=== PATIENT | female | born 1950 | race Caucasian/White ===

== ENCOUNTER → 2017-03-08 | Outpatient (CLI) | payer OTHER ==
--- NOTE | 2017-03-14 14:46 | WOMENS IMAGING REPORT ---
EXAM DESCRIPTION: BILAT SCREENING MAMMO W/CAD COMPLETED DATE/TIME: 03/08/2017 1:01 pm REASON FOR STUDY: SCREENING MAMMO Z12.31 Z12.31 ENCNTR SCREEN MAMMOGRAM FOR MALIGNANT NEOPLASM OF B RE COMPARISON: November 2013 outside facility. TECHNIQUE: Standard craniocaudal and mediolateral oblique views of each breast recorded using Casentrica l acquisition. LIMITATIONS: None. FINDINGS: No masses, calcifications or architectural distortion. No areas of suspicion. Read with the assistance of CAD. .[facility] - R2 Cenova Version 1.3 .[facility] Imaging - R2 Cenova Version 1.3 .[facility] - R2 Cenova Version 2.4 .[facility] - R2 Cenova Version 2.4 .COUNTS INCLUDE 234 BEDS AT THE [facility] - R2 Mechanical Test Technician Version 9.2 IMPRESSION: NORMAL MAMMOGRAM. BIRADS 1. BREAST DENSITY: b. There are scattered areas of fibroglandular density. BIRAD: 1 NEGATIVE RECOMMENDATION: ROUTINE SCREENING COMMENT: The patient has been notified of the results by letter per SA requirements. Additional no tification policies are in place for contacting patient with suspicious or incomplete findings. Quality ID #[id number]: The [employer] recommends an annual screening mammogram for women aged 40 years or over. This facility utilizes a reminder system to ensure that all patients receive reminder letters, and/or direct phone calls for appointments. This includes reminders for routine scr eening mammograms, diagnostic mammograms, or other Breast Imaging Interventions when appropriate. Th is patient will be placed in the appropriate reminder system. The [employer] (ACR) has developed recommendations for screening MRI of the breast s in certain patient populations, to be used in conjunction with mammography. Breast MRI surveillanc e may be appropriate for women with more than 20% lifetime risk of developing breast cancer as deter mined by genetic testing, significant family history of the disease, or history of mantle radiation f or Hodgkins Disease. ACR Practice Guidelines 2008. TECHNICAL DOCUMENTATION: FINDING NUMBER: (1) ASSESSMENT: (1) JOB ID: [id number] [employer]- All Rights Reserved
== END ==
LOC: WI 12:26
PROVIDERS: ATTEND Nurse Practitioner Adult Health
DX: Z12.31 Encounter for screening mammogram for malignant neoplasm of breast (principal)
CPT/HCPCS: 77067; G0202

== ENCOUNTER 2017-06-21 01:46 | Inpatient (IN) | payer MEDICARE, OTHER ==
[2017-06-21] MEDS ORDERED: ALBUTEROL SULFATE 0.083% NEB 2.5 MG/3 ML AMPUL NEB ONE ×2 (01:58→02:47)
[2017-06-21] MEDS ORDERED: IPRATROPIUM/ALBUTEROL 0.5-2.5 MG/3 ML AMPUL NEB ONE (01:58)
[2017-06-21] MEDS ORDERED: NORMAL SALINE 1000 ML 1,000 ML IV ONE (01:59)
[2017-06-21] MEDS ORDERED: METHYLPREDNISOLONE INJ 125 MG/2 ML SDV IV ONE (01:59)
--- NOTE | 2017-06-21 02:07 | ER Document Report ---
ED General - General Chief Complaint: Respiratory Distress Stated Complaint: BREATHING DIFFICULTY Time Seen by Provider: 06/21/17 01:58 Notes: Patient is a 67-year-old female with past medical history of hypertension chronic anxiety, current every day tobacco smoker who presents with 3 days of progressively worsening shortness of breath that became much worse this evening. Patient describes having persistent cough without production of sputum for the past 3 days and increasing wheezing and tightness of air movement. She noticed any form of exertion worsens her symptoms. She does not have anything to treat her symptoms at home as she states she has never been diagnosed formally with COPD. Her has been ill with similar symptoms. She has not seen her primary care doctor regarding today's concerns. She denies any history of similar symptoms in the past. She has never required intubation or hospitalization for respiratory condition in the past. TRAVEL OUTSIDE OF THE [place] IN LAST 30 DAYS: No Past Medical History - General Information source: Patient - Social History Smoking Status: Current Every Day Smoker Frequency of alcohol use: None Drug Abuse: None Lives with: Spouse/Significant other Family History: Reviewed & Not Pertinent Review of Systems - Review of Systems Notes: Constitutional: Positive for fever. HENT: Negative for sore throat. Eyes: Negative for visual changes. Cardiovascular: Negative for chest pain. Respiratory: Positive for shortness of breath. Gastrointestinal: Negative for abdominal pain, vomiting or diarrhea. Genitourinary: Negative for dysuria. Musculoskeletal: Negative for back pain. Skin: Negative for rash. Neurological: Negative for headaches, weakness or numbness. 10 point ROS negative except as marked above and in HPI. Physical Exam - Vital signs Vitals: Temp Pulse Resp BP Pulse Ox 98.2 F 90 30 H 153/54 H 79 L 06/21/17 01:52 06/21/17 01:52 06/21/17 01:52 06/21/17 01:52 06/21/17 01:52 Interpretation: Tachycardic, Hypoxic, Tachypneic Notes: PHYSICAL EXAMINATION: GENERAL: Severely ill in appearance, in respiratory distress, unable to speak in complete sentences HEAD: Atraumatic, normocephalic. EYES: Pupils equal round and reactive to light, extraocular movements intact, sclera anicteric, conjunctiva are normal. ENT: nares patent, oropharynx clear without exudates. Dry mucous membranes. NECK: Normal range of motion, supple without lymphadenopathy LUNGS: Absent breath sounds at the bases bilaterally. Extremely tight air movement at the lung apices bilaterally with prolonged expiratory wheezing HEART: Regular tachycardia without murmurs ABDOMEN: Soft, nontender, normoactive bowel sounds. No guarding, no rebound. No masses appreciated. EXTREMITIES: Normal range of motion, no pitting or edema. No cyanosis. NEUROLOGICAL: No focal neurological deficits. Moves all extremities spontaneously and on command. PSYCH: Normal mood, normal affect. SKIN: Warm, Dry, normal turgor, no rashes or lesions noted. Course - Re-evaluation Re-evalutation: 06/21/17 02:06 Patient presents in severe respiratory distress initially saturating 79% on room air at time of presentation, tachypneic, and obvious distress. She was immediately brought back to room. Patient has extremely tight air movement in all lung galeano, almost no breath sounds at the bases bilaterally. She is unable to speak more than 3 words in a sentence despite being on nasal cannula oxygen and a continuous nebulizer. An IV was established. 125 mg of Solu- Medrol, 2 g of magnesium, 1 L of IV fluids all have been initiated. Patient will also be started on ceftriaxone. A chest x-ray will be obtained. Continuous cardiac monitoring has been initiated. Patient will also be placed on BiPAP given her ongoing work of breathing. She is critically ill and require ongoing frequent assessments. 06/21/17 02:20 Patient is clinically improved on BiPAP, continuous in-line nebs are ongoing. She is pulling appropriate tidal volumes. I cannot appreciate air movement at the bases bilaterally. Will continue to monitor closely. 0250-patient continues to have significant improvement in her overall clinical picture. Chest x-ray shows findings consistent with COPD but I do not see an obvious pneumonia. Labs were unremarkable. Patient states she feels markedly improved relative to her time of presentation. I discussed this case with Dr. Griffin who has agreed to admit the patient. - Vital Signs Vital signs: Temp Pulse Resp BP Pulse Ox 98.2 F 90 23 H 106/52 L 99 06/21/17 01:52 06/21/17 01:52 06/21/17 03:30 06/21/17 03:29 06/21/17 03:30 - Laboratory Result Diagrams: 06/21/17 02:10 06/21/17 02:10 Laboratory results interpreted by me: 06/21/17 06/21/17 02:10 02:10 WBC 10.7 H RDW 14.2 H Chloride 96 L Glucose 128 H - Diagnostic Test Radiology reviewed: Image reviewed, Reports reviewed Radiology results interpreted by me: 06/21/17 02:48 Chest x-ray: Hyperexpanded lungs, no obvious infiltrate - EKG Interpretation by Me Additional EKG results interpreted by me: 06/21/17 02:49 Sinus rhythm. Rate 66. No ST elevations or depressions. QTC is 439. Critical Care Note - Critical Care Note Total time excluding time spent on procedures (mins): 38 Comments: Critical care time spent obtaining history from patient or surrogate, discussions with consultants, development of treatment plan with patient or surrogate, evaluation of patient's response to treatment, examination of patient , ordering and performing treatments and interventions, ordering and review of laboratory studies, re-evaluation of patient's condition, ordering and review of radiographic studies and review of old charts Discharge - Discharge Clinical Impression: Respiratory distress, COPD exacerbation Condition: Fair Disposition: ADMITTED INPATIENT Admitting Provider: Johnna [facility] Admitted: Telemetry
[2017-06-21 02:27] LABS: ABSOLUTE BASOPHILS # (AUTO) 0.1 10^3/uL (0.0-0.2); ABSOLUTE EOSINOPHILS # (AUTO) 0.5 10^3/uL (0.0-0.6); ABSOLUTE LYMPHOCYTES (AUTO) 1.5 10^3/uL (0.5-4.7); ABSOLUTE MONOCYTES (AUTO) 1.1 10^3/uL (0.1-1.4); ABSOLUTE NEUT (AUTO) 7.5 10^3/uL (1.7-8.2); BASOPHILS % (AUTO) 1.1 % (0-2); EOSINOPHILS % (AUTO) 4.3 % (0-6); HEMATOCRIT 41.9 % (36.0-47.0); HEMOGLOBIN 14.6 g/dL (12.0-15.5); HGB HCT DIFFERENCE 1.9; LYMPHOCYTES % (AUTO) 13.9 % (13-45); MEAN CORPUSCULAR HEMOGLOBIN 30.8 pg (27.0-33.4); MEAN CORPUSCULAR HGB CONC 34.9 g/dL (32.0-36.0); MEAN CORPUSCULAR VOLUME 88 fl (80-97); MONOCYTES % (AUTO) 10.5 % (3-13); RED BLOOD COUNT 4.76 10^6/uL (3.72-5.28); RED CELL DISTRIBUTION WIDTH 14.2 % (11.5-14.0); SEGMENTED NEUTROPHILS % (AUTO) 70.2 % (42-78); WHITE BLOOD COUNT 10.7 10^3/uL (4.0-10.5)
[2017-06-21] MEDS: MAGNESIUM SULFATE/D5W 1 GM/100 ML RTUPB IV SCH ×2 (02:28→03:09)
[2017-06-21 02:31] LABS: VENOUS BLOOD BASE EXCESS 4.4 mmol/L; VENOUS BLOOD HCO3 31.8 mmol/L (20-32); VENOUS BLOOD PCO2 58.6 mmHg (35-63); VENOUS BLOOD PH 7.35 (7.30-7.42)
[2017-06-21 02:41] LABS: ANION GAP 14 (5-19); BLOOD UREA NITROGEN 14 mg/dL (7-20); CALCIUM 9.7 mg/dL (8.4-10.2); CARBON DIOXIDE 30 mmol/L (22-30); CHLORIDE 96 mmol/L (98-107); CREATININE RESULT 0.71 mg/dL (0.52-1.25); GLUCOSE 128 mg/dL (75-110); POTASSIUM 3.8 mmol/L (3.6-5.0); SODIUM 140.3 mmol/L (137-145)
[2017-06-21] MEDS ORDERED: AZITHROMYCIN 250 MG TABLET PO ONE (02:45)
--- NOTE | 2017-06-21 02:46 | RADIOLOGY REPORT (SQ) ---
EXAM DESCRIPTION: CHEST SINGLE VIEW COMPLETED DATE/TIME: 06/21/2017 2:25 am REASON FOR STUDY: sob COMPARISON: None. EXAM PARAMETERS: NUMBER OF VIEWS: One view. TECHNIQUE: Single frontal radiographic view of the chest acquired. RADIATION DOSE: NA LIMITATIONS: None. FINDINGS: LUNGS AND PLEURA: No opacities, masses or pneumothorax. No pleural effusion. MEDIASTINUM AND HILAR STRUCTURES: No masses. Contour normal. HEART AND VASCULAR STRUCTURES: Heart normal in size. Normal vasculature. BONES: No acute findings. HARDWARE: C7-T1 cervical hardware fusion. OTHER: No other significant finding. IMPRESSION: NO ACUTE RADIOGRAPHIC FINDING IN THE CHEST. TECHNICAL DOCUMENTATION: JOB ID: [id number] [employer]- All Rights Reserved
[2017-06-21] MEDS ORDERED: GUAIFENESIN SYRP 200 MG/10 ML UDC PO PRN (02:48)
[2017-06-21] MEDS ORDERED: IPRATROPIUM/ALBUTEROL 0.5-2.5 MG/3 ML AMPUL NEB PRN ×2 (02:48→12:37)
[2017-06-21] MEDS ORDERED: FLUTICASONE NASAL SPRAY 50 MCG/SPRY 120 SPRAY/16 GM NASL ONE (03:00)
[2017-06-21] MEDS ORDERED: PREDNISONE 20 MG TABLET PO ONE (03:00)
[2017-06-21] MEDS ORDERED: FLUTICASONE NASAL SPRAY 50 MCG/SPRY 120 SPRAY/16 GM ONE (03:45)
[2017-06-21] MEDS ORDERED: CHLORPHENIRAMINE MALEATE 4 MG TABLET ONE (03:45)
--- NOTE | 2017-06-21 05:30 | PDOC H&P ---
History of Present Illness Admission Date/PCP: 06/21/17 02:57 ABEBA LUA NP Patient complains of: Shortness of breath History of Present Illness: LUKE HUBBARD is a 67 year old female with past medical history of hypertension , anxiety, GERD and Tobacco Dependence. Patient presents after 3 days of progressive worsening of shortness of breath associated with rhinorrhea, nonproductive cough and subjective fevers. Her is ill with similar symptoms she denies previous episode she has tried [id number] medications without significant improvement prompting her to seek evaluation after became blue. In the emergency room she is found to be in severe respiratory distress with oxygen saturation of 79% on room air tachypnea and cyanosis. She is placed on BiPAP, continuous albuterol and Atrovent nebulizer, magnesium sulfate IV and referred to the hospitalist for admission. Past Medical History Cardiac Medical History: Reports: Hypertension Pulmonary Medical History: Reports: Bronchitis, Pneumonia Denies: Chronic Obstructive Pulmonary Disease (COPD) Psychiatric Medical History: Reports: Tobacco Dependency Social History Information Source: Patient Lives with: Spouse/Significant other Smoking Status: Current Every Day Smoker Cigarettes Packs Per Day: 0.5 Number of Years Smokin Frequency of Alcohol Use: Social Hx Recreational Drug Use: No Drugs: None - Advance Directive Resuscitation Status: Full Code Family History Family History: Hypertension Parental Family History Reviewed: Yes Children Family History Reviewed: Yes Sibling(s) Family History Reviewed.: Yes Medication/Allergy Allergies/Adverse Reactions: No Known Allergies Allergy (Unverified 06/21/17 04:54) Review of Systems Constitutional: ABSENT: chills, fever(s), headache(s), weight gain, weight loss Eyes: ABSENT: visual disturbances Ears: ABSENT: hearing changes Cardiovascular: ABSENT: chest pain, dyspnea on exertion, edema, orthropnea, palpitations Respiratory: ABSENT: cough, hemoptysis Gastrointestinal: ABSENT: abdominal pain, constipation, diarrhea, hematemesis, hematochezia, nausea, vomiting Genitourinary: ABSENT: dysuria, hematuria Musculoskeletal: ABSENT: joint swelling Integumentary: ABSENT: rash, wounds Neurological: ABSENT: abnormal gait, abnormal speech, confusion, dizziness, focal weakness, syncope Psychiatric: ABSENT: anxiety, depression, homidical ideation, suicidal ideation Endocrine: ABSENT: cold intolerance, heat intolerance, polydipsia, polyuria Hematologic/Lymphatic: ABSENT: easy bleeding, easy bruising Physical Exam Vital Signs: Temp Pulse Resp BP Pulse Ox 97.7 F 83 18 99/32 L 94 06/21/17 04:11 06/21/17 04:11 06/21/17 04:11 06/21/17 04:11 06/21/17 04:11 General appearance: PRESENT: cooperative, mild distress, thin Head exam: PRESENT: atraumatic, normocephalic Eye exam: PRESENT: conjunctiva pink, EOMI, PERRLA. ABSENT: scleral icterus Ear exam: PRESENT: normal external ear exam Mouth exam: PRESENT: moist, tongue midline Neck exam: ABSENT: carotid bruit, JVD, lymphadenopathy, thyromegaly Respiratory exam: PRESENT: accessory muscle use, decreased breath sounds, prolonged expiratory phas, rales, retraction, symmetrical, tachypnea, wheezes Cardiovascular exam: PRESENT: RRR. ABSENT: diastolic murmur, rubs, systolic murmur Pulses: PRESENT: normal dorsalis pedis pul Vascular exam: PRESENT: normal capillary refill GI/Abdominal exam: PRESENT: normal bowel sounds, soft. ABSENT: distended, guarding, mass, organolmegaly, rebound, tenderness Rectal exam: PRESENT: deferred Extremities exam: PRESENT: full ROM. ABSENT: calf tenderness, clubbing, pedal edema Neurological exam: PRESENT: alert, awake, oriented to person, oriented to place , oriented to time, oriented to situation, CN II-XII grossly intact. ABSENT: motor sensory deficit Psychiatric exam: PRESENT: appropriate affect, normal mood. ABSENT: homicidal ideation, suicidal ideation Skin exam: PRESENT: dry, intact, warm. ABSENT: cyanosis, rash Results Impressions: Chest X-Ray 06/21/17 01:58 IMPRESSION: NO ACUTE RADIOGRAPHIC FINDING IN THE CHEST. Assessment & Plan - Diagnosis (1) COPD exacerbation Is this a current diagnosis for this admission?: Yes Plan: Telemetry floor admission, albuterol and Atrovent, flutter valve and education (2) Acute bronchitis Is this a current diagnosis for this admission?: Yes Plan: Empiric antibiotics, prednisone, Flonase, chlorpheniramine, albuterol and Atrovent consider CT given extensive history of tobacco (3) Tobacco dependency Is this a current diagnosis for this admission?: Yes Plan: Tobacco Dependence patient received tobacco cessation counseling and offered nicotine replacement options (4) Respiratory distress Is this a current diagnosis for this admission?: Yes Plan: Secondary to #1 and 2 supportive care and BiPAP. - Time Time Spent: 50 to 70 Minutes - Inpatient Certification Medical Necessity: Need Close Monitoring Due to Risk of Patient Decompensation
[2017-06-21] MEDS: HEPARIN SOD (PORCINE) 5,000 UNIT/ML 1 ML SYRINGE SUBCUT SCH ×3 (05:41→21:37)
[2017-06-21] MEDS: LANSOPRAZOLE 30 MG TAB.RAP.DR PO SCH (05:41)
[2017-06-21] MEDS: FLUTICASONE NASAL SPRAY 50 MCG/SPRY 120 SPRAY/16 GM NASL SCH ×2 (05:50→17:44)
[2017-06-21] MEDS ORDERED: CHLORPHENIRAMINE MALEATE 4 MG TABLET PO ONE (06:00)
[2017-06-21] MEDS ORDERED: PREDNISONE 20 MG TABLET PO SCH (06:00)
[2017-06-21] MEDS ORDERED: CEFTRIAXONE 1 GM/D5W RTU 1 GM/50 ML RTUPB IV ONE (06:00)
[2017-06-21] MEDS: IPRATROPIUM/ALBUTEROL 0.5-2.5 MG/3 ML AMPUL NEB SCH ×3 (07:43→21:39)
[2017-06-21] MEDS: PREDNISONE 20 MG TABLET PO SCH ×2 (10:00→21:37)
[2017-06-21] MEDS: LEVOFLOXACIN 750 MG/D5W RTU 750 MG/150 ML RTUPB IV SCH (10:00)
--- NOTE | 2017-06-21 12:40 | Progress Note ---
Provider Note Provider Note: Ms Flores is a 67-year-old female with a history of COPD who was admitted earlier today with an acute exacerbation. Initially, she required BiPAP. She has been off BiPAP for more than 6 hours. She is on nasal cannula. She is able to speak in complete sentences. On exam, she is still wheezing. She is anxious. She is also being treated for pneumonia with levofloxacin. The plan is to continue IV steroids, duo nebs, and antibiotics. Wean oxygen as tolerated. Home in the next 48-72 hours.
[2017-06-21] MEDS ORDERED: ESCITALOPRAM OXALATE 10 MG TABLET PO ONE (13:30)
[2017-06-21] MEDS ORDERED: METOPROLOL TARTRATE 25 MG TABLET PO ONE (13:30)
[2017-06-21] MEDS: ACETAMINOPHEN 325 MG TABLET PO PRN (15:36)
[2017-06-21] MEDS: LORAZEPAM 1 MG TABLET PO PRN (16:55)
--- NOTE | 2017-06-21 19:42 | EKG REPORT ---
SEVERITY:- NORMAL ECG - SINUS RHYTHM : Confirmed by: Sherri Estrada MD 21-Jun-2017 19:41:52
[2017-06-21] MEDS: ZOLPIDEM TARTRATE 5 MG TABLET PO PRN (21:36)
[2017-06-21] MEDS: METOPROLOL TARTRATE 50 MG TABLET PO SCH (21:37)
[2017-06-22] MEDS: IPRATROPIUM/ALBUTEROL 0.5-2.5 MG/3 ML AMPUL NEB SCH ×4 (03:00→21:27)
[2017-06-22] MEDS: LORAZEPAM 1 MG TABLET PO PRN ×2 (05:18→15:44)
[2017-06-22] MEDS: LANSOPRAZOLE 30 MG TAB.RAP.DR PO SCH (05:19)
[2017-06-22] MEDS: HEPARIN SOD (PORCINE) 5,000 UNIT/ML 1 ML SYRINGE SUBCUT SCH ×3 (05:19→21:24)
[2017-06-22] MEDS: FLUTICASONE NASAL SPRAY 50 MCG/SPRY 120 SPRAY/16 GM NASL SCH ×2 (05:19→18:36)
[2017-06-22 06:34] LABS: ABSOLUTE LYMPHOCYTES (AUTO) 1.2 10^3/uL (0.5-4.7); ABSOLUTE MONOCYTES (AUTO) 0.9 10^3/uL (0.1-1.4); ABSOLUTE NEUT (AUTO) 13.7 10^3/uL (1.7-8.2); BASOPHILS % (AUTO) 0.3 % (0-2); EOSINOPHILS % (AUTO) 0.2 % (0-6); HEMATOCRIT 38.6 % (36.0-47.0); HEMOGLOBIN 13.1 g/dL (12.0-15.5); HGB HCT DIFFERENCE 0.7; LYMPHOCYTES % (AUTO) 7.3 % (13-45); MEAN CORPUSCULAR HEMOGLOBIN 29.8 pg (27.0-33.4); MEAN CORPUSCULAR HGB CONC 34.1 g/dL (32.0-36.0); MEAN CORPUSCULAR VOLUME 88 fl (80-97); MONOCYTES % (AUTO) 5.9 % (3-13); RED BLOOD COUNT 4.41 10^6/uL (3.72-5.28); RED CELL DISTRIBUTION WIDTH 13.8 % (11.5-14.0); SEGMENTED NEUTROPHILS % (AUTO) 86.3 % (42-78); WHITE BLOOD COUNT 15.8 10^3/uL (4.0-10.5)
[2017-06-22 06:55] LABS: ANION GAP 12 (5-19); BLOOD UREA NITROGEN 16 mg/dL (7-20); CALCIUM 9.5 mg/dL (8.4-10.2); CARBON DIOXIDE 28 mmol/L (22-30); CHLORIDE 101 mmol/L (98-107); CREATININE RESULT 0.56 mg/dL (0.52-1.25); GLUCOSE 144 mg/dL (75-110); POTASSIUM 4.2 mmol/L (3.6-5.0); SODIUM 140.9 mmol/L (137-145)
[2017-06-22] MEDS ORDERED: (PENDING PHARMACY ID) (Escitalopram Oxalate [Lexapro] 10 MG) PO SCH (10:00)
[2017-06-22] MEDS ORDERED: (PENDING PHARMACY ID) (Lisinopril/Hydrochlorothiazide [Lisinopril-Hctz 20-25 Mg Tab] 1 TAB PO SCH (10:00)
[2017-06-22] MEDS ORDERED: LANSOPRAZOLE 15 MG TAB.RAP.DR PO SCH (10:00)
[2017-06-22] MEDS: HYDROCHLOROTHIAZIDE 25 MG TABLET PO SCH (11:00)
[2017-06-22] MEDS: LISINOPRIL 10 MG TABLET PO SCH (11:00)
[2017-06-22] MEDS: AMLODIPINE BESYLATE 10 MG TABLET PO SCH (11:00)
[2017-06-22] MEDS: METOPROLOL TARTRATE 50 MG TABLET PO SCH ×2 (11:00→21:24)
[2017-06-22] MEDS: PREDNISONE 20 MG TABLET PO SCH ×2 (11:00→21:24)
[2017-06-22] MEDS: LEVOFLOXACIN 750 MG/D5W RTU 750 MG/150 ML RTUPB IV SCH (11:00)
[2017-06-22] MEDS: POTASSIUM CHLORIDE 10 MEQ TABLET.SA PO SCH (11:00)
[2017-06-22] MEDS: ESCITALOPRAM OXALATE 10 MG TABLET PO SCH (11:01)
[2017-06-22] MEDS: ACETAMINOPHEN 325 MG TABLET PO PRN (11:04)
--- NOTE | 2017-06-22 17:13 | PROGRESS NOTE E ---
Progress Note NAME: LUKE HUBBARD : 1950 AGE: 67Y DATE: 06/22/2017 ROOM: 529 SUBJECTIVE: The patient is a pleasant 67-year-old female who had past medical history of COPD. She had presented with acute hypoxemic respiratory failure. She had shortness of breath and she is a smoker. She was started on BiPAP, albuterol/Atrovent nebulizers. She received also magnesium sulfate in the ER. She is still wheezing but feeling better. OBJECTIVE: GENERAL: The patient is lying in bed, comfortable, not in distress. VITAL SIGNS: Temperature 98.4, heart rate is 98, blood pressure 151/54, saturation is 94% on 2 liters, respiratory rate is 18. HEENT: Head normocephalic, atraumatic. Pupils are equal, round, and reactive to light and accommodation bilaterally. Extraocular motion intact. Ears: Tympanic membranes intact bilaterally, no discharge from the ear. No discharge from the nose. NECK: Supple. No increased JVD, no thyromegaly, no lymphadenopathy. CARDIOVASCULAR: Normal S1,S2. Regular rate and rhythm. RESPIRATORY: Bilateral wheezing. ABDOMEN: Soft. MUSCULOSKELETAL: No edema. NEUROLOGICAL: Awake, alert. LABORATORY DATA: White blood count is 15.8, hemoglobin 13, hematocrit 38. Sodium 140, potassium 4.2, creatinine 0.5. ASSESSMENT: 1. [id number] HYPOXIC RESPIRATORY FAILURE. On nebulizer and oxygen, antibiotic Levaquin and prednisone *------* mg p.o. q.12 h. 2. RESPIRATORY DISTRESS. 3. TOBACCO ABUSE. PLAN: Continue antibiotic, prednisone, Flonase and albuterol inhaler nebulizer MEDICAL NECESSITY. She is still wheezing and still on nebulizer and IV antibiotic. DICTATING PHYSICIAN: VALERY LIANG M.D. [id number] PHY#: [id number] ID: [id number] JOB#: [id number] ACCT: [id number] cc: >
[2017-06-22] MEDS ORDERED: NICOTINE 21 MG/24 HR PATCH.TD24 TD ONE (18:00)
[2017-06-22] MEDS: ZOLPIDEM TARTRATE 5 MG TABLET PO PRN (21:24)
[2017-06-23] MEDS: IPRATROPIUM/ALBUTEROL 0.5-2.5 MG/3 ML AMPUL NEB SCH ×4 (02:29→20:03)
[2017-06-23] MEDS: FLUTICASONE NASAL SPRAY 50 MCG/SPRY 120 SPRAY/16 GM NASL SCH ×2 (05:21→18:49)
[2017-06-23] MEDS: LANSOPRAZOLE 30 MG TAB.RAP.DR PO SCH (05:21)
[2017-06-23] MEDS: HEPARIN SOD (PORCINE) 5,000 UNIT/ML 1 ML SYRINGE SUBCUT SCH ×3 (05:21→22:05)
[2017-06-23] MEDS: LORAZEPAM 1 MG TABLET PO PRN ×2 (05:21→16:42)
[2017-06-23] MEDS: POTASSIUM CHLORIDE 10 MEQ TABLET.SA PO SCH (10:21)
[2017-06-23] MEDS: METOPROLOL TARTRATE 50 MG TABLET PO SCH ×2 (10:21→22:06)
[2017-06-23] MEDS: AMLODIPINE BESYLATE 10 MG TABLET PO SCH (10:22)
[2017-06-23] MEDS: ESCITALOPRAM OXALATE 10 MG TABLET PO SCH (10:23)
[2017-06-23] MEDS: HYDROCHLOROTHIAZIDE 25 MG TABLET PO SCH (10:23)
[2017-06-23] MEDS: LISINOPRIL 10 MG TABLET PO SCH (10:23)
[2017-06-23] MEDS: PREDNISONE 20 MG TABLET PO SCH ×2 (10:24→22:05)
[2017-06-23] MEDS: NICOTINE 21 MG/24 HR PATCH.TD24 TD SCH (10:24)
[2017-06-23] MEDS: LEVOFLOXACIN 750 MG/D5W RTU 750 MG/150 ML RTUPB IV SCH (10:24)
[2017-06-23] MEDS: ACETAMINOPHEN 325 MG TABLET PO PRN (10:28)
[2017-06-23 12:45] LABS: TROPONIN I < 0.012 ng/mL
--- NOTE | 2017-06-23 13:48 | PROGRESS NOTE E ---
Progress Note NAME: LUKE HUBBARD : 1950 AGE: 67Y DATE: 06/23/2017 ROOM: 529 SUBJECTIVE: The patient is a 67-year-old female who had a past medical history of COPD. She presented with acute hypoxemic respiratory failure, had shortness of breath and she is a smoker. She was placed on BiPAP. She is on albuterol/Atrovent nebulizers. She also received magnesium sulfate in the ER. The patient is still wheezing. According to her, she never had a history in the past with asthma or COPD, but she used to smoke in the past. OBJECTIVE: GENERAL: The patient is lying in bed, comfortable, not in distress. VITAL SIGNS: Blood pressure 134/61, heart rate 92, respiratory 18. HEENT: Head normocephalic, atraumatic. Pupils are equal, round, and reactive to light and accommodation bilaterally. Ears: Tympanic membranes intact bilaterally, no discharge from the ear. No discharge from the nose. NECK: Supple. No increased JVD, no thyromegaly, no lymphadenopathy. CARDIOVASCULAR: Normal S1,S2. Regular rate and rhythm. RESPIRATORY: Bilateral wheezing. ABDOMEN: Soft. MUSCULOSKELETAL: No edema. NEUROLOGICAL: Awake, alert. SKIN: No rash. LABORATORY DATA: White blood count is 15.8, hemoglobin 13. Sodium 140, potassium 4.2 ASSESSMENT: 1. ACUTE HYPOXIC RESPIRATORY FAILURE SECONDARY TO POSSIBLE COPD. 2. COPD EXACERBATION. Patient not diagnosed with COPD. 3. TOBACCO ABUSE. PLAN: Continue CPAP at night, continue steroid, nebulizer and antibiotics. Will consult Dr. Vaughn to see her today. MEDICAL NECESSITY. The patient is still wheezing and still in respiratory failure. Needs to be monitored for next 24-48 hours. DICTATING PHYSICIAN: VALERY LIANG M.D. [id number] PHY#: [id number] ID: [id number] JOB#: [id number] ACCT: [id number] cc: > MTDD
[2017-06-23 18:19] LABS: CREATINE KINASE MB 1.72 ng/mL (<4.55)
[2017-06-23 18:25] LABS: TROPONIN I < 0.012 ng/mL
[2017-06-23] MEDS: ZOLPIDEM TARTRATE 5 MG TABLET PO PRN (22:06)
[2017-06-24 00:24] LABS: CREATINE KINASE MB 1.89 ng/mL (<4.55)
[2017-06-24 00:32] LABS: TROPONIN I < 0.012 ng/mL
[2017-06-24] MEDS: IPRATROPIUM/ALBUTEROL 0.5-2.5 MG/3 ML AMPUL NEB SCH ×4 (01:37→20:20)
[2017-06-24] MEDS: HEPARIN SOD (PORCINE) 5,000 UNIT/ML 1 ML SYRINGE SUBCUT SCH ×3 (06:07→22:38)
[2017-06-24] MEDS: LANSOPRAZOLE 30 MG TAB.RAP.DR PO SCH (06:07)
[2017-06-24] MEDS: FLUTICASONE NASAL SPRAY 50 MCG/SPRY 120 SPRAY/16 GM NASL SCH ×2 (06:07→17:40)
[2017-06-24 06:11] LABS: ABSOLUTE BASOPHILS # (AUTO) 0.1 10^3/uL (0.0-0.2); ABSOLUTE LYMPHOCYTES (AUTO) 1.9 10^3/uL (0.5-4.7); ABSOLUTE NEUT (AUTO) 9.9 10^3/uL (1.7-8.2); BASOPHILS % (AUTO) 0.7 % (0-2); EOSINOPHILS % (AUTO) 0.1 % (0-6); HEMOGLOBIN 14.4 g/dL (12.0-15.5); HGB HCT DIFFERENCE 1.2; LYMPHOCYTES % (AUTO) 14.5 % (13-45); MEAN CORPUSCULAR HEMOGLOBIN 29.6 pg (27.0-33.4); MEAN CORPUSCULAR HGB CONC 34.4 g/dL (32.0-36.0); MEAN CORPUSCULAR VOLUME 86 fl (80-97); RED BLOOD COUNT 4.87 10^6/uL (3.72-5.28); RED CELL DISTRIBUTION WIDTH 13.8 % (11.5-14.0); SEGMENTED NEUTROPHILS % (AUTO) 76.7 % (42-78); WHITE BLOOD COUNT 12.9 10^3/uL (4.0-10.5)
[2017-06-24 06:51] LABS: ALANINE AMINOTRANSFERASE 61 U/L (9-52); ALBUMIN 4.3 g/dL (3.5-5.0); ALKALINE PHOSPHATASE 88 U/L (38-126); ANION GAP 17 (5-19); ASPARTATE AMINO TRANSFERASE 36 U/L (14-36); BILIRUBIN,DIRECT 0.5 mg/dL (0.0-0.4); BILIRUBIN,TOTAL 0.5 mg/dL (0.2-1.3); BLOOD UREA NITROGEN 25 mg/dL (7-20); CALCIUM 10.5 mg/dL (8.4-10.2); CARBON DIOXIDE 26 mmol/L (22-30); CHLORIDE 98 mmol/L (98-107); CREATININE RESULT 0.68 mg/dL (0.52-1.25); GLUCOSE 122 mg/dL (75-110); POTASSIUM 4.6 mmol/L (3.6-5.0); SODIUM 140.5 mmol/L (137-145); TOTAL PROTEIN 6.9 g/dL (6.3-8.2)
[2017-06-24] MEDS: AMLODIPINE BESYLATE 10 MG TABLET PO SCH (10:57)
[2017-06-24] MEDS: ESCITALOPRAM OXALATE 10 MG TABLET PO SCH (10:57)
[2017-06-24] MEDS: METOPROLOL TARTRATE 50 MG TABLET PO SCH ×2 (10:57→22:38)
[2017-06-24] MEDS: LEVOFLOXACIN 750 MG TABLET PO SCH (10:58)
[2017-06-24] MEDS: HYDROCHLOROTHIAZIDE 25 MG TABLET PO SCH (10:58)
[2017-06-24] MEDS: LISINOPRIL 10 MG TABLET PO SCH (10:58)
[2017-06-24] MEDS: POTASSIUM CHLORIDE 10 MEQ TABLET.SA PO SCH (10:58)
[2017-06-24] MEDS: NICOTINE 21 MG/24 HR PATCH.TD24 TD SCH (10:59)
[2017-06-24] MEDS: PREDNISONE 20 MG TABLET PO SCH ×2 (10:59→22:39)
--- NOTE | 2017-06-24 11:58 | PDOC CONSULTATION ---
Consultation Consult Date: 06/23/17 Attending physician:: VALERY LIANG Consult reason:: Exacerbation of COPD History of Present Illness Admission Date/PCP: 06/21/17 02:57 ABEBA LUA NP History of Present Illness: LUKE HUBBARD is a 67 year old female with past medical history of hypertension , anxiety, GERD and Tobacco Dependence. Patient presents after 3 days of progressive worsening of shortness of breath associated with rhinorrhea, nonproductive cough and subjective fevers. In the emergency room she is found to be in severe respiratory distress with oxygen saturation of 79% on room air tachypnea and cyanosis..She denies shortness of breath at rest or dyspnea on exertion prior to current event,she admits to occasional cough is usually dry nonproductive and denies hemoptysis. her PPD was negative the dates unknown. She has no history of chronic lung disease as a child or adolescent. She admits to exposure to passive smoke as a child as well as an adult she herself is smoked a half pack a day for 30 years and continued to smoke up until the time of admission has no significant occupational exposure to potential respiratory problems. She has no pets and denies recent travel she denies angina-like chest pain sleeps on 2-3 pillows occasional PND occasional nocturnal cough rare edema. She admits to some snoring restless sleep nocturia 2-3 times per night unrestful sleep and daytime somnolence. Past Medical History Cardiac Medical History: Reports: Hypertension Pulmonary Medical History: Reports: Bronchitis, Pneumonia Denies: Chronic Obstructive Pulmonary Disease (COPD) Psychiatric Medical History: Reports: Tobacco Dependency Past Surgical History Past Surgical History: Reports: Other - Bilateral tubal ligation Social History Information Source: Patient, Emergency Med Personnel Lives with: Spouse/Significant other Smoking Status: Current Every Day Smoker Cigarettes Packs Per Day: 0.5 Number of Years Smokin Passive smoke exposure as: Both Frequency of Alcohol Use: Social Hx Recreational Drug Use: No Drugs: None Hx Prescription Drug Abuse: No Do you have pets?: No Have you had any respiratory illnesses as a child?: No Have you been exposed to any sick contacts recently?: Yes Have you had any recent respiratory illnesses?: No Have you travelled outside of [place] in the past 12 months?: No - Advance Directive Resuscitation Status: Full Code Family History Family History: CAD, COPD, DM, Hypertension Parental Family History Reviewed: Yes Children Family History Reviewed: Yes Sibling(s) Family History Reviewed.: Yes Medication/Allergy Home Medications: Amlodipine Besylate [Norvasc 10 mg Tablet] 5 mg PO DAILY 06/21/17 Escitalopram Oxalate [Lexapro] 10 mg PO DAILY 06/21/17 Lisinopril/Hydrochlorothiazide [Lisinopril-Hctz 20-25 mg Tab] 1 tab PO DAILY Metoprolol Tartrate [Lopressor 50 mg Tablet] 25 mg PO Q12 06/21/17 Omeprazole 20 mg PO DAILY 06/21/17 Potassium Chloride [Klor-Con 10 Meq Tablet.sa] 20 meq PO DAILY 06/21/17 Allergies/Adverse Reactions: No Known Allergies Allergy (Unverified 06/21/17 04:54) Review of Systems Constitutional: PRESENT: chills, fatigue, fever(s), weakness. ABSENT: anorexia , headache(s), night sweats, weight gain, weight loss Eyes: ABSENT: visual disturbances Ears: ABSENT: hearing changes Nose, Mouth, and Throat: ABSENT: mouth pain Cardiovascular: PRESENT: dyspnea on exertion, orthropnea. ABSENT: chest pain, edema, palpitations Respiratory: PRESENT: cough, dyspnea. ABSENT: hemoptysis Gastrointestinal: PRESENT: abdominal pain, diarrhea, dysphagia. ABSENT: bloating, coffee ground emesis, heartburn, hematemesis, hematochezia, melena Genitourinary: PRESENT: nocturia. ABSENT: difficulty urinating, dysuria, hematuria Musculoskeletal: ABSENT: deformity, joint swelling Integumentary: PRESENT: pruritus, rash Neurological: ABSENT: abnormal gait, abnormal movements, abnormal speech, confusion, convulsions, focal weakness, frequent falls, lack of coordination, memory loss, syncope Psychiatric: PRESENT: anxiety, depression. ABSENT: hallucinations, homidical ideation, suicidal ideation Endocrine: ABSENT: cold intolerance, heat intolerance, menstrual abnormalities, polydipsia, polyuria Hematologic/Lymphatic: PRESENT: easy bruising Physical Exam Vital Signs: Temp Pulse Resp BP Pulse Ox 98.2 F 87 18 134/61 H 93 06/23/17 07:19 06/23/17 07:31 06/23/17 07:31 06/23/17 07:19 06/23/17 07:19 Intake & Output 06/22/17 06/23/17 06/24/17 06:59 06:59 06:59 Intake Total 2560 2000 Balance 2560 2000 Weight 62.5 kg 62.5 kg General appearance: PRESENT: no acute distress, cooperative, disheveled, well- developed, well-nourished Head exam: PRESENT: atraumatic, normocephalic Eye exam: PRESENT: conjunctiva pale, EOMI, PERRLA Mouth exam: PRESENT: dry mucosa, neck supple, tongue midline Teeth exam: PRESENT: poor dentation Neck exam: ABSENT: carotid bruit, JVD, lymphadenopathy, thyromegaly Respiratory exam: PRESENT: decreased breath sounds, prolonged expiratory phas, rhonchi, symmetrical, unlabored, wheezes. ABSENT: accessory muscle use, chest wall tenderness, clear to auscultation bessie, crackles, rales, retraction, stridor , tachypnea Cardiovascular exam: PRESENT: RRR, +S1, +S2. ABSENT: clicks, gallop, irregular rhythm, rubs Pulses: PRESENT: normal radial pulses GI/Abdominal exam: PRESENT: normal bowel sounds, soft. ABSENT: distended, guarding, mass, organolmegaly, rebound, tenderness Extremities exam: ABSENT: calf tenderness, clubbing, joint swelling, pedal edema Musculoskeletal exam: ABSENT: deformity, dislocation, tenderness Neurological exam: PRESENT: alert, awake Psychiatric exam: PRESENT: anxious Skin exam: PRESENT: dry, warm Results Laboratory Results: 06/22/17 06:26 06/22/17 06:26 Impressions: Chest X-Ray 06/21/17 01:58 IMPRESSION: NO ACUTE RADIOGRAPHIC FINDING IN THE CHEST. Assessment & Plan - Diagnosis (1) Acute bronchitis Is this a current diagnosis for this admission?: Yes Plan: Generic Name Dose Route Start Last Admin Trade Name Freq PRN Reason Stop Dose Admin Levofloxacin 750 mg 06/24/17 10:00 06/24/17 10:58 Levaquin 750 Mg Tablet PO 07/01/17 09:59 750 mg DAILY ASHLEY (2) COPD exacerbation Is this a current diagnosis for this admission?: Yes Plan: Generic Name Dose Route Start Last Admin Trade Name Freq PRN Reason Stop Dose Admin Albuterol/Ipratropium 3 ml 06/21/17 08:00 06/24/17 08:04 Duoneb 3 Ml Ampul NEB 07/21/17 07:59 3 ml RTQ6 ASHLEY Fluticasone Propionate 2 spray 06/21/17 06:00 06/24/17 06:07 Flonase Nasal [place] 50 Mcg/[place] 16 Gm NASL 07/21/17 05:59 2 spray Q12A ASHLEY Prednisone 20 mg 06/21/17 10:00 06/24/17 10:59 Deltasone 20 Mg Tablet PO 07/21/17 09:59 20 mg Q12 ASHLEY Guaifenesin 200 mg 06/21/17 02:48 06/22/17 21:27 Robitussin Syrup 200 Mg/10 Ml Ud Cup PO 07/21/17 02:47 200 mg Q4HP PRN COUGH Bedside spirometry (3) Respiratory distress Is this a current diagnosis for this admission?: Yes Plan: Supplemental oxygen as needed (4) Tobacco dependency Is this a current diagnosis for this admission?: Yes Plan: Generic Name Dose Route Start Last Admin Trade Name Freq PRN Reason Stop Dose Admin Nicotine 1 each 06/23/17 10:00 06/24/17 10:59 Nicoderm 21 Mg/24 Hr Transderm Patch TD 07/23/17 09:59 1 each DAILY ASHLEY (5) Anxiety Is this a current diagnosis for this admission?: Yes Plan: Generic Name Dose Route Start Last Admin Trade Name Freq PRN Reason Stop Dose Admin Lorazepam 1 mg 06/21/17 15:43 06/23/17 16:42 Ativan 1 Mg Tablet PO 06/28/17 15:42 1 mg Q8HP PRN ANXIETY Zolpidem Tartrate 5 mg 06/21/17 12:35 06/23/17 22:06 Ambien 5 Mg Tablet PO 07/21/17 12:34 5 mg HSP PRN SLEEP OR INSOMNIA Escitalopram Oxalate 10 mg 06/22/17 10:00 06/24/17 10:57 Lexapro 10 Mg Tablet PO 07/22/17 09:59 10 mg DAILY ASHLEY (6) GERD with esophagitis Is this a current diagnosis for this admission?: Yes Plan: Generic Name Dose Route Start Last Admin Trade Name Freq PRN Reason Stop Dose Admin Lansoprazole 30 mg 06/21/17 06:00 06/24/17 06:07 Prevacid 30 Mg Odt Tablet PO 07/21/17 05:59 30 mg Q6AM ASHLEY Keep patient in reverse Trendelenburg at all times (7) Cough due to bronchospasm Is this a current diagnosis for this admission?: Yes Plan: Tessalon Perles 100 mg p.o. 3 times daily
[2017-06-24] MEDS ORDERED: BENZONATATE 100 MG CAPSULE PO ONE (12:30)
--- NOTE | 2017-06-24 12:58 | PROGRESS NOTE E ---
Progress Note NAME: LUKE HUBBARD : 1950 AGE: 67Y DATE: ROOM: 529 SUBJECTIVE: The patient is a pleasant 67-year-old female who had a past medical history of COPD. She presented with acute hypoxic respiratory failure, had shortness of breath and she is a smoker, placed on BiPAP yesterday. She was seen by Dr. Vaughn, and the patient had lung pulmonary function tests yesterday. She still has coughing and has wheezing, on oxygen. OBJECTIVE: GENERAL: Patient lying in bed, not in distress. VITAL SIGNS: Temperature 97.9, heart rate was 72, blood pressure 121/57, respiratory rate is 18, saturation is 94 on 3L. HEENT: Head: Normocephalic, atraumatic. Pupils round, reactive to light and accommodation bilaterally. Extraocular movements intact. Ears: Tympanic membranes intact bilateral. No discharge from the ears. No discharge from the nose. NECK: Supple. No increased JVD. No thyromegaly. No lymphadenopathy. CARDIOVASCULAR: Normal S1, S2, regular rate and rhythm. No murmur. No gallop. RESPIRATORY: Bilateral crackles. ABDOMEN: Soft, nontender. MUSCULOSKELETAL: No edema. NEUROLOGICAL EXAM: Awake, alert. SKIN: No rash. LABORATORY: White blood count 13, hemoglobin 14. Sodium 140, potassium 4.6, creatinine 0.6. ASSESSMENT: 1. ACUTE HYPOXIC RESPIRATORY FAILURE, SECONDARY TO POSSIBLE COPD EXACERBATION. 2. TOBACCO ABUSE. PLAN: Continue inhalers, and I will discontinue lisinopril. It could be a contributing factor for cough. Continue Levaquin. Continue prednisone. We will order CT chest with IV contrast. MEDICAL NECESSITY MEASURE: The patient still needs to stay for monitoring her for COPD. She still has a cough and she is coughing and she is still in respiratory distress, requiring high oxygen. DICTATING PHYSICIAN: VALERY LIANG M.D. [id number] PHY#: [id number] ID: [id number] JOB#: [id number] ACCT: [id number] cc: >
--- NOTE | 2017-06-24 13:53 | RADIOLOGY REPORT (SQ) ---
EXAM DESCRIPTION: CT CHEST WITH COMPLETED DATE/TIME: 06/24/2017 11:59 am REASON FOR STUDY: Hypoxemia COMPARISON: Radiographs. TECHNIQUE: CT scan of the chest performed using helical scanning technique with dynamic intravenous contrast injection. Images reviewed with lung, soft tissue and bone windows. Reconstructed coronal and sagittal MPR images reviewed. All images stored on PACS. All CT scanners at this facility use dose modulation, iterative reconstruction, and/or weight based d osing when appropriate to reduce radiation dose to as low as reasonably achievable (ALARA). [facility]: Dose Right [facility]: CareDose [facility]: Dose Right [facility]: Teradose 4D [facility]: [employer] CONTRAST TYPE AND DOSE: contrast/concentration: Isovue 370.00 mg/ml; Total Contrast Delivered: 80.0 ml; Total Saline Delivered: 40.1 ml RENAL FUNCTION: Creatinine 0.7 RADIATION DOSE: CT Rad equipment meets quality standard of care and radiation dose reduction techniq ues were employed. CTDIvol: 5.9 mGy. DLP: 232 mGy-cm. . LIMITATIONS: None. FINDINGS: LUNGS AND PLEURA: Mild patchy ground-glass upper lobe bilateral infiltrates. No consolida ting pneumonia. No significant pleural disease. No nodules or masses. HILAR AND MEDIASTINAL STRUCTURES: Small nodes. No carlito adenopathy or mass detected. HEART AND VASCULAR STRUCTURES: No aneurysm or dissection. No central pulmonary emboli. No pericardi al effusion. HARDWARE: None in the chest. UPPER ABDOMEN: No significant findings. Limited exam. THYROID AND OTHER SOFT TISSUES: No masses. No adenopathy. BONES: No significant finding. OTHER: No other significant finding. IMPRESSION: Mild ground-glass upper lobe bilateral infiltrates, acuity and significance indeterminat e. TECHNICAL DOCUMENTATION: JOB ID: [id number] Quality ID # [id number]: Final reports with documentation of one or more dose reduction techniques (e.g., Au tomated exposure control, adjustment of the mA and/or kV according to patient size, use of iterative reconstruction technique) 2010 [employer]- All Rights Reserved
[2017-06-24] MEDS: LORAZEPAM 1 MG TABLET PO PRN ×2 (14:31→22:38)
[2017-06-24] MEDS: ZOLPIDEM TARTRATE 5 MG TABLET PO PRN (22:38)
[2017-06-24] MEDS: BENZONATATE 100 MG CAPSULE PO SCH (22:39)
[2017-06-25] MEDS: IPRATROPIUM/ALBUTEROL 0.5-2.5 MG/3 ML AMPUL NEB SCH ×4 (02:00→19:58)
[2017-06-25 04:41] LABS: ABSOLUTE BASOPHILS # (AUTO) 0.1 10^3/uL (0.0-0.2); ABSOLUTE LYMPHOCYTES (AUTO) 2.3 10^3/uL (0.5-4.7); ABSOLUTE MONOCYTES (AUTO) 1.3 10^3/uL (0.1-1.4); ABSOLUTE NEUT (AUTO) 8.7 10^3/uL (1.7-8.2); BASOPHILS % (AUTO) 0.6 % (0-2); EOSINOPHILS % (AUTO) 0.2 % (0-6); HEMOGLOBIN 14.7 g/dL (12.0-15.5); HGB HCT DIFFERENCE 1.1; LYMPHOCYTES % (AUTO) 18.4 % (13-45); MEAN CORPUSCULAR HEMOGLOBIN 29.6 pg (27.0-33.4); MEAN CORPUSCULAR HGB CONC 34.1 g/dL (32.0-36.0); MEAN CORPUSCULAR VOLUME 87 fl (80-97); MONOCYTES % (AUTO) 10.4 % (3-13); RED BLOOD COUNT 4.95 10^6/uL (3.72-5.28); RED CELL DISTRIBUTION WIDTH 13.7 % (11.5-14.0); SEGMENTED NEUTROPHILS % (AUTO) 70.4 % (42-78); WHITE BLOOD COUNT 12.3 10^3/uL (4.0-10.5)
[2017-06-25 05:04] LABS: ALBUMIN 4.3 g/dL (3.5-5.0); ANION GAP 17 (5-19); BLOOD UREA NITROGEN 24 mg/dL (7-20); CARBON DIOXIDE 27 mmol/L (22-30); CHLORIDE 95 mmol/L (98-107); CREATININE RESULT 0.69 mg/dL (0.52-1.25); GLUCOSE 127 mg/dL (75-110); PHOSPHORUS 4.9 mg/dL (2.5-4.5); POTASSIUM 4.5 mmol/L (3.6-5.0); SODIUM 138.7 mmol/L (137-145)
[2017-06-25] MEDS: HEPARIN SOD (PORCINE) 5,000 UNIT/ML 1 ML SYRINGE SUBCUT SCH ×3 (05:51→21:40)
[2017-06-25] MEDS: FLUTICASONE NASAL SPRAY 50 MCG/SPRY 120 SPRAY/16 GM NASL SCH ×2 (05:51→18:34)
[2017-06-25] MEDS: BENZONATATE 100 MG CAPSULE PO SCH ×3 (05:51→21:40)
[2017-06-25] MEDS: LANSOPRAZOLE 30 MG TAB.RAP.DR PO SCH (05:51)
[2017-06-25] MEDS: NICOTINE 21 MG/24 HR PATCH.TD24 TD SCH (10:00)
[2017-06-25] MEDS: PREDNISONE 20 MG TABLET PO SCH ×2 (10:04→21:40)
[2017-06-25] MEDS: METOPROLOL TARTRATE 50 MG TABLET PO SCH ×2 (10:04→21:40)
[2017-06-25] MEDS: POTASSIUM CHLORIDE 10 MEQ TABLET.SA PO SCH (10:06)
[2017-06-25] MEDS: HYDROCHLOROTHIAZIDE 25 MG TABLET PO SCH (10:06)
[2017-06-25] MEDS: ESCITALOPRAM OXALATE 10 MG TABLET PO SCH (10:06)
[2017-06-25] MEDS: LEVOFLOXACIN 750 MG TABLET PO SCH (10:07)
[2017-06-25] MEDS: AMLODIPINE BESYLATE 10 MG TABLET PO SCH (10:07)
[2017-06-25] MEDS: LORAZEPAM 1 MG TABLET PO PRN ×2 (10:19→21:40)
[2017-06-25] MEDS ORDERED: TIOTROPIUM BROMIDE DPI 5 CAP/KIT (18 MCG/CAP) IH ONE (12:00)
[2017-06-25] MEDS ORDERED: FLUTICASONE/SALMETEROL DISKUS 250-50 MCG/DOSE IH ONE (12:00)
--- NOTE | 2017-06-25 13:34 | PDOC PROGRESS REPORT ---
Subjective Progress Note for:: 06/25/17 Subjective:: f/u copd exac, acute bronchitis, poss pna, acute hypoxic resp failure reports feeling better and wants to go home; still very anxious whenever she gets up and moving b/c she still gets winded easily and is asking for ativan to go home with for "her nerves" for which she is under the care of psychiatrist/ counselor. she still wheezing but much improved and denies chest pain, palpitations, n/v/d. ROS: alll systems reviewed, see above, remaining systems negative. Physical Exam Vital Signs: Temp Pulse Resp BP Pulse Ox 98.0 F 87 16 143/71 H 96 06/25/17 07:53 06/25/17 07:53 06/25/17 07:53 06/25/17 07:53 06/25/17 07:53 Intake & Output 06/24/17 06/25/17 06/26/17 06:59 06:59 06:59 Intake Total 2308 800 Balance 2308 800 Weight 65.5 kg 63.4 kg General appearance: PRESENT: no acute distress, well-developed Head exam: PRESENT: atraumatic Eye exam: ABSENT: conjunctival injection, scleral icterus Mouth exam: PRESENT: moist, neck supple Neck exam: PRESENT: full ROM. ABSENT: tenderness Respiratory exam: PRESENT: crackles, wheezes. ABSENT: accessory muscle use Cardiovascular exam: PRESENT: RRR. ABSENT: systolic murmur GI/Abdominal exam: PRESENT: normal bowel sounds, soft. ABSENT: tenderness Extremities exam: ABSENT: calf tenderness, pedal edema Musculoskeletal exam: PRESENT: ambulatory, full ROM Neurological exam: PRESENT: alert, awake, oriented to person, oriented to place , oriented to time, oriented to situation Psychiatric exam: PRESENT: appropriate affect, normal mood Skin exam: PRESENT: dry, warm Results Laboratory Results: 06/25/17 04:05 06/25/17 04:05 06/25/17 06/25/17 04:05 04:05 WBC 12.3 H RBC 4.95 Hgb 14.7 Hct 43.0 MCV 87 MCH 29.6 MCHC 34.1 RDW 13.7 Plt Count 337 Seg Neutrophils % 70.4 Lymphocytes % 18.4 Monocytes % 10.4 Eosinophils % 0.2 Basophils % 0.6 Absolute Neutrophils 8.7 H Absolute Lymphocytes 2.3 Absolute Monocytes 1.3 Absolute Eosinophils 0.0 Absolute Basophils 0.1 Sodium 138.7 Potassium 4.5 Chloride 95 L Carbon Dioxide 27 Anion Gap 17 BUN 24 H Creatinine 0.69 Est GFR ( Amer) > 60 Est GFR (Non-Af Amer) > 60 Glucose 127 H Calcium 10.0 Phosphorus 4.9 H Albumin 4.3 06/23/17 06/23/17 06/23/17 12:03 12:03 17:35 Creatine Kinase 141 H 220 H CK-MB (CK-2) 1.40 Troponin I < 0.012 06/23/17 06/23/17 06/23/17 17:35 23:30 23:30 Creatine Kinase 252 H CK-MB (CK-2) 1.72 1.89 Troponin I < 0.012 < 0.012 Impressions: Chest X-Ray 06/21/17 01:58 IMPRESSION: NO ACUTE RADIOGRAPHIC FINDING IN THE CHEST. Chest CT 06/24/17 00:00 IMPRESSION: Mild ground-glass upper lobe bilateral infiltrates, acuity and significance indeterminate. Status: Image reviewed by me - ct reviewed, agree with rads Assessment & Plan - Diagnosis (1) Atypical pneumonia Is this a current diagnosis for this admission?: Yes Plan: continue levaquin and systemic steroids; continue attempts to wean off O2 and ck RA sat daily. add inhaled steroid and monitor for effect. will need INHs at d /c (2) Anxiety Is this a current diagnosis for this admission?: Yes Plan: will send home with a few ativan for breakthrough symptoms to help get her through this acute resp illness and then defer to PCP and psych for further treatment (3) COPD exacerbation Is this a current diagnosis for this admission?: Yes Plan: some better but not back to baseline yet (4) Tobacco dependency Is this a current diagnosis for this admission?: Yes - Time Time Spent with patient: 35 or more minutes Medications reviewed and adjusted accordingly: Yes - Plan Summary Plan Summary: possibly home Monday
[2017-06-25] MEDS: FLUTICASONE/SALMETEROL DISKUS 250-50 MCG/DOSE IH SCH (21:39)
[2017-06-25] MEDS: ZOLPIDEM TARTRATE 5 MG TABLET PO PRN (21:40)
[2017-06-26] MEDS: IPRATROPIUM/ALBUTEROL 0.5-2.5 MG/3 ML AMPUL NEB SCH ×2 (01:54→07:43)
[2017-06-26] MEDS: BENZONATATE 100 MG CAPSULE PO SCH (06:42)
[2017-06-26] MEDS: LANSOPRAZOLE 30 MG TAB.RAP.DR PO SCH (06:42)
[2017-06-26] MEDS: FLUTICASONE NASAL SPRAY 50 MCG/SPRY 120 SPRAY/16 GM NASL SCH (06:42)
[2017-06-26] MEDS: HEPARIN SOD (PORCINE) 5,000 UNIT/ML 1 ML SYRINGE SUBCUT SCH (06:42)
[2017-06-26 08:04] VITALS: BP 132/58
[2017-06-26] MEDS: AMLODIPINE BESYLATE 10 MG TABLET PO SCH (09:14)
[2017-06-26] MEDS: ESCITALOPRAM OXALATE 10 MG TABLET PO SCH (09:14)
[2017-06-26] MEDS: NICOTINE 21 MG/24 HR PATCH.TD24 TD SCH (09:15)
[2017-06-26] MEDS: FLUTICASONE/SALMETEROL DISKUS 250-50 MCG/DOSE IH SCH (09:15)
[2017-06-26] MEDS: METOPROLOL TARTRATE 50 MG TABLET PO SCH (09:15)
[2017-06-26] MEDS: LEVOFLOXACIN 750 MG TABLET PO SCH (09:15)
[2017-06-26] MEDS: PREDNISONE 20 MG TABLET PO SCH (09:15)
[2017-06-26] MEDS: POTASSIUM CHLORIDE 10 MEQ TABLET.SA PO SCH (09:15)
[2017-06-26] MEDS: HYDROCHLOROTHIAZIDE 25 MG TABLET PO SCH (09:15)
[2017-06-26] MEDS ORDERED: TIOTROPIUM BROMIDE DPI 5 CAP/KIT (18 MCG/CAP) IH SCH (10:00)
--- NOTE | 2017-06-26 15:13 | PDOC DISCHARGE SUMMARY ---
General - Admit/Disc Date/PCP Admission Date/Primary Care Provider: 06/21/17 02:57 ABEBA LUA NP Discharge Date: 06/26/17 - Discharge Diagnosis (1) Atypical pneumonia Is this a current diagnosis for this admission?: Yes Summary: My continue antibiotics. Total 10 day course. (2) Anxiety Is this a current diagnosis for this admission?: Yes Summary: Continue intermittent Ativan until follow-up with usual psychiatry. (3) COPD exacerbation Is this a current diagnosis for this admission?: Yes Summary: Stable. Continue steroids for an additional 5 days. Prescriptions provided for inhaled steroid and Spiriva. Follow-up with Dr. Vaughn for PFTs. (4) Tobacco dependency Is this a current diagnosis for this admission?: Yes - Additional Information Resuscitation Status: Full Code Discharge Diet: As Tolerated Discharge Activity: Activity As Tolerated Home Medications: Amlodipine Besylate [Norvasc 10 mg Tablet] 5 mg PO DAILY 06/21/17 Escitalopram Oxalate [Lexapro] 10 mg PO DAILY 06/21/17 Lisinopril/Hydrochlorothiazide [Lisinopril-Hctz 20-25 mg Tab] 1 tab PO DAILY Metoprolol Tartrate [Lopressor 50 mg Tablet] 25 mg PO Q12 06/21/17 Omeprazole 20 mg PO DAILY 06/21/17 Potassium Chloride [Klor-Con 10 Meq Tablet.sa] 20 meq PO DAILY 06/21/17 Fluticasone Propionate [Flonase Nasal [place] 50 Mcg/[place] 16 gm] 2 spray NASL Q12A #1 spray.pump 06/26/17 Fluticasone/Salmeterol [Advair 250-50 Diskus 14 Dose/Diskus] 1 inh IH Q12 #1 inhaler 06/26/17 Levofloxacin [Levaquin 750 mg Tablet] 750 mg PO DAILY #3 tablet 06/26/17 Lorazepam [Ativan 1 mg Tablet] 1 mg PO Q8HP PRN #10 tablet 06/26/17 Nicotine [Nicoderm 21 mg/24 Hr Transderm Patch] 1 each TD DAILY #30 patch.td24 06/26/17 Prednisone [Deltasone 20 mg Tablet] 20 mg PO Q12 #10 tablet 06/26/17 Tiotropium [place] [Spiriva Handihaler 5 Cap/Kit (18 Mcg/Cap)] 1 cap IH DAILY # 30 dose 06/26/17 History of Present Illness Patient complains of: Shortness of breath History of Present Illness: LUKE HUBBARD is a 67 year old female with past medical history of hypertension , anxiety, GERD and Tobacco Dependence. Patient presents after 3 days of progressive worsening of shortness of breath associated with rhinorrhea, nonproductive cough and subjective fevers. Her is ill with similar symptoms she denies previous episode she has tried [id number] medications without significant improvement prompting her to seek evaluation after became blue. In the emergency room she is found to be in severe respiratory distress with oxygen saturation of 79% on room air tachypnea and cyanosis. She is placed on BiPAP, continuous albuterol and Atrovent nebulizer, magnesium sulfate IV and referred to the hospitalist for admission. Hospital Course Hospital Course: Patient was admitted to the hospital and started on antibiotics, systemic steroids, nebulizers and aggressive pulmonary toilet and gradually improved over the course of several days. She was weaned off oxygen and is maintaining sats greater than 90% on room air even with ambulation. At this point she is stable for discharge home and should complete a total 10 day course of antibiotics an additional 5 days of prednisone. She is to return to the emergency department if she has any worsening of her condition. Patient suffered bouts of anxiety during her hospitalization were well controlled with intermittent Ativan dosing. She will be given a short course and is instructed to follow-up with her usual psychiatrist for additional treatment. She expresses no concerns about discharge home at this time. She seemed pleased with the care she received. Physical Exam Vital Signs: Temp Pulse Resp BP Pulse Ox 97.8 F 80 18 132/58 H 94 06/26/17 10:43 06/26/17 10:43 06/26/17 10:43 06/26/17 10:43 06/26/17 10:43 Intake & Output 06/25/17 06/26/17 06/27/17 06:59 06:59 06:59 Intake Total 800 1910 Balance 800 1910 Weight 63.4 kg 63.4 kg General appearance: PRESENT: cooperative, mild distress, thin Head exam: PRESENT: atraumatic, normocephalic Respiratory exam: No accessory muscle use; decreased breath sounds, prolonged expiratory phase; no rales, tachypnea, wheezes Cardiovascular exam: PRESENT: RRR. ABSENT: diastolic murmur, rubs, systolic murmur GI/Abdominal exam: PRESENT: normal bowel sounds, soft. ABSENT: distended, guarding, mass, organolmegaly, rebound, tenderness Extremities exam: PRESENT: full ROM. ABSENT: calf tenderness, clubbing, pedal edema Neurological exam: PRESENT: alert, awake, oriented to person, oriented to place , oriented to time, oriented to situation, Psychiatric exam: PRESENT: appropriate affect, normal mood. Skin exam: PRESENT: dry, intact, warm. ABSENT: cyanosis, rash Results Laboratory Results: 06/25/17 04:05 06/25/17 04:05 06/23/17 06/23/17 06/23/17 12:03 12:03 17:35 Creatine Kinase 141 H 220 H CK-MB (CK-2) 1.40 Troponin I < 0.012 06/23/17 06/23/17 06/23/17 17:35 23:30 23:30 Creatine Kinase 252 H CK-MB (CK-2) 1.72 1.89 Troponin I < 0.012 < 0.012 Impressions: Chest X-Ray 06/21/17 01:58 IMPRESSION: NO ACUTE RADIOGRAPHIC FINDING IN THE CHEST. Chest CT 06/24/17 00:00 IMPRESSION: Mild ground-glass upper lobe bilateral infiltrates, acuity and significance indeterminate. Qualifiers PATEINT BEING DISCHARGED WITH ANY OF THE FOLLOWING DIAGNOSIS?: No VTE patient discharged on overlapping Therapy?: No Reason(s) for not prescribing Overlap Therapy:: Not indicated Plan Discharge Plan: Stable for discharge home Time Spent: Greater than 30 Minutes
--- NOTE | 2017-06-30 12:33 | Pulmonary Function Test ---
Pulmonary Function Test Date of Procedure:: 06/23/17 INDICATION:: Dyspnea Referring Provider: Snoal Vaughn MD - Report Spirometry: FVC 1.43 L 49% postbronchodilator therapy 1.21 L 41% FEV1 0.89 L 38% postbronchodilator therapy 0.91 L 39% FEV1/FVC percent 62 postbronchodilator therapy 75 predicted 90 FEF 25-75% 0.89 L 36% post bronchodilator therapy 0.92 L 38% Impression: Study demonstrates severe obstructive ventilatory defect with insignificant response to bronchodilator therapy. This does not preclude a clinical trial of bronchodilator therapy. Strong evidence for restrictive ventilatory defect which cannot be diagnosised solely on basis of spirometry. If clinically indicated complete pulmonary function tests may be helpful
== END 2017-06-26 11:15 | disposition home or self-care (01) | DRG 189 ==
LOC: ER 01:46 → EH 02:57 → 5 03:46
PROVIDERS: ADMIT Internal Medicine; ATTEND Internal Medicine
DX: J96.21 Acute and chronic respiratory failure with hypoxia (principal); J18.9 Pneumonia, unspecified organism; J44.0 Chronic obstructive pulmonary disease with (acute) lower respiratory infection; J44.1 Chronic obstructive pulmonary disease with (acute) exacerbation; J20.9 Acute bronchitis, unspecified; I10 Essential (primary) hypertension; K21.9 Gastro-esophageal reflux disease without esophagitis; F41.9 Anxiety disorder, unspecified; F17.210 Nicotine dependence, cigarettes, uncomplicated
CPT/HCPCS: 36415; 71010; 71260; 80048; 80053; 80069; 82550; 82553; 82803; 83880; 84484; 85025; 93005; 93010; 94010; 94640; 94660; 94667; 94668; 94799; 96365; 96375; 99291; J0696; J1644; J1956; J2930; J3475; J3490; J7030; J7512; J7620